=== PATIENT | female | born 1985 | race Caucasian/White ===

== ENCOUNTER 2022-10-24 14:24 | Outpatient (CLI) | payer BC, SELFPAY ==
[2022-10-24 14:49] LABS: Albumin* 4.7 g/dL (3.3-5.0)
[2022-10-24 14:50] LABS: Chloride* 107 mmol/L (96-114); Potassium* 4.3 mmol/L (3.6-5.1); Sodium* 139 mmol/L (135-149)
[2022-10-24 14:52] LABS: Aspartate Amino Transferase* 20 U/L (12-35); Bilirubin Total* 0.5 mg/dL (0.1-1.5); Carbon Dioxide* 22 mmol/L (20-32); Cholesterol* 209 mg/dL (90-199); Creatinine* 0.6 mg/dL (0.5-1.5); Estimated Glomerular Filt Rate 117 ml/min; Total Protein* 7.9 g/dL (6.0-8.3)
[2022-10-24 14:53] LABS: Alanine Aminotransferase* 16 U/L (4-35); Alkaline Phosphatase* 90 U/L (40-150); Blood Urea Nitrogen* 14 mg/dL (5-24); Calcium* 9.3 mg/dL (8.4-10.6); Glucose* 94 mg/dL (60-115); Triglycerides* 294 mg/dL (40-149)
[2022-10-24 14:54] LABS: HDL Cholesterol* 55 mg/dL (>=50); LDL Cholesterol Calculated 95 mg/dL (<100)
== END 2022-10-24 14:25 | disposition home or self-care (01) ==
PROVIDERS: PCP Physician Assistant Medical; Visit Provider Physician Assistant Medical
DX: I10 Essential (primary) hypertension (principal); Z13.6 Encounter for screening for cardiovascular disorders; Z13.29 Encounter for screening for other suspected endocrine disorder
CPT/HCPCS: 80053; 80061; 84443

== ENCOUNTER 2023-10-29 08:45 | Outpatient (CLI) | payer BC, SELFPAY | END 2023-10-29 08:46 | disposition home or self-care (01) | LOC: NFLDREF 10-30 11:52 | PROVIDERS: PCP Physician Assistant Medical; Referring Provider Physician Assistant Medical; Visit Provider Physician Assistant Medical | DX: I10 Essential (primary) hypertension (principal); N92.1 Excessive and frequent menstruation with irregular cycle; F41.8 Other specified anxiety disorders; E28.2 Polycystic ovarian syndrome; Z13.6 Encounter for screening for cardiovascular disorders | CPT/HCPCS: 80053; 80061; 84443 ==

== ENCOUNTER 2024-01-16 08:54 | Outpatient (CLI) | payer BC, SELFPAY ==
--- NOTE | 2024-01-16 09:15 | MM_ITS ---
Patient: KIMBERLY CHAMPION Facility:?[facility] Patient ID:?[id number] Site Patient ID:?[id number]. Site :?[id number] Study:?XRay-Breast Bilateral 3D W/CAD-01/16/2024 11:53:59 AM Ordering Physician:Davin Sampson Final Report: BILATERAL SCREENING MAMMOGRAM WITH COMPUTER-AIDED DETECTION AND TOMOSYNTHESIS TECHNIQUE: CC and MLO views were obtained. These mammographic images have been obtained using full-field digital technique. These mammographic images were interpreted with the benefit of computer-aided detection. Breast Tomosynthesis was used in this interpretation. COMPARISON FILM: Baseline. FINDINGS: The breasts are heterogeneously dense, which may obscure small masses IMPRESSION: There is no radiographic evidence for malignancy. ASSESSMENT: BI-RADS Category 1: Negative RECOMMENDATION: Routine screening mammogram in 1 year. A lay language report of this examination will be provided to the patient. Raul Britt M.D. Diagnostic Radiologist [email or web address] GLORIA/theron / be/Dictated by: Raul Britt MD @ 01/17/2024 8:36:00 AM Signed by:?Raul Britt MD @01/18/2024 10:15:30 AM (Electronic Signature)
== END 2024-01-16 08:55 | disposition home or self-care (01) ==
LOC: MAMMO 08:55
PROVIDERS: PCP Physician Assistant Medical; Visit Provider Physician Assistant Medical
DX: Z12.31 Encounter for screening mammogram for malignant neoplasm of breast (principal); R92.2 Inconclusive mammogram
CPT/HCPCS: 77063; 77067